=== PATIENT | male | born 1980 | race Caucasian/White ===

== ENCOUNTER 2020-03-29 12:59 | Outpatient (REF) | payer OTHER, SELFPAY ==
--- NOTE | 2020-03-29 13:02 | US_ITS ---
EXAMINATION: US SCROTUM CLINICAL INFORMATION: Lump on the testicle. COMPARISON: Ultrasound scrotum 04/25/2016 TECHNIQUE: A sonogram of the scrotum was performed assessing moctezuma-scale appearance and color Doppler flow. Spectral Doppler analysis of the arterial and venous flow were performed in the testes bilaterally. FINDINGS: RIGHT: Right testicle measures 3.9 x 1.9 x 2.8 cm, volume 10.8 mL. No focal testicular parenchymal lesions are visualized. Spectral Doppler analysis of the arterial and venous flow is normal in the right testis. Right epididymal head is normal in size. Small physiological fluid seen in the right testes. No right hydrocele or varicocele is seen. Right epididymal Doppler flow is normal. LEFT: Left testicle measures 4.1 x 1.9 x 2.8 cm, volume 11.4 mL. No focal testicular parenchymal lesions are visualized. Spectral Doppler analysis of the arterial and venous flow is normal in the left testis. Left epididymal head is normal in size. There is a small hydrocele. No varicocele is seen. Left epididymal Doppler flow is normal. There is a left epididymal head cyst measuring 0.4 x 0.3 x 0.6 cm. There is a complex area seen superior to left epididymal head in the spermatic cord. It appears similar to previous study. US/US scrotum IMPRESSION: Small left epididymal head cyst with hydrocele. Small echogenic area superior to left epididymal head in the spermatic cord, similar to previous study. It does not change in size with Valsalva maneuver. Question small hernia. Unremarkable testes.
[2020-03-29 15:16] LABS: MANUAL DIFF FLAG NO
[2020-03-29 15:21] LABS: Basophils Percent Auto 0.3 % (0-2); Eosinophils Absolute Auto 0.4 X10*3/uL (0.0-0.4); Eosinophils Percent Auto 5.3 % (0-4); Imm Gran Abs Auto 0.01 X10*3/uL (0.00-0.03); Imm Gran Pct Auto 0.2 % (0.0-0.4); Lymphocytes Absolute Auto 1.4 X10*3/uL (1.2-4.9); Lymphocytes Percent Auto 21.5 % (20-40); Mean Corpuscular Hemoglobin 30.6 pg (27.0-33.0); Mean Corpuscular Volume 89.9 fL (80-98); Mean Platelet Volume 9.7 fL (9.4-12.4); Monocytes Absolute Auto 0.6 X10*3/uL (0.1-1.2); Monocytes Percent Auto 8.8 % (2-11); Neutrophils Absolute Auto 4.2 X10*3/uL (2.0-8.3); Neutrophils Percent Auto 63.9 % (45-73); Platelet Count 262 X10*3/uL (160-400); Red Blood Count 5.23 X10*6/uL (4.60-5.80); Red Cell Distribution Width 12.1 % (11.0-16.0); White Blood Count 6.6 X10*3/uL (4.8-10.8)
[2020-03-29 16:27] LABS: Alanine Aminotransferase 41 U/L (0-40); Albumin Level 4.1 g/dL (3.5-5.0); Alkaline Phosphatase 89 U/L (39-117); Anion Gap 11 (12-20); Aspartate Amino Transferase 27 U/L (5-37); Bilirubin Total 0.6 mg/dL (0.0-1.0); Blood Urea Nitrogen 12 mg/dL (9-16); Calcium 9.2 mg/dL (8.4-10.2); Carbon Dioxide 29 mmol/L (22-29); Chloride 104 mmol/L (96-108); Cholesterol 148 mg/dL; Estimated Glomerular Filt Rate > 60; Glucose Fasting 95 mg/dL (60-99); HDL Cholesterol 27 mg/dL; LDL Cholesterol Calculated 105 mg/dl; Potassium 4.4 mmol/l (3.3-5.1); Sodium 140 mmol/L (135-145); Total Protein 7.4 g/dL (6.5-8.0); Triglycerides 84 mg/dL
== END 2020-03-29 13:00 | disposition home or self-care (01) ==
LOC: HO.US 12:59
PROVIDERS: PCP Internal Medicine; Visit Provider Internal Medicine
DX: Z00.00 Encounter for general adult medical examination without abnormal findings (principal); E11.9 Type 2 diabetes mellitus without complications; N50.89 Other specified disorders of the male genital organs
CPT/HCPCS: 36415; 76870; 80053; 80061; 85025

== ENCOUNTER 2020-04-29 12:34 | Outpatient (REF) | payer OTHER, SELFPAY | END 2020-04-29 12:35 | disposition home or self-care (01) | LOC: HO.LAB 12:34 | PROVIDERS: Visit Provider Internal Medicine | DX: Z20.822 Contact with and (suspected) exposure to COVID-19 (principal) | CPT/HCPCS: 36415; C9803; U0003; U0005 ==

== ENCOUNTER 2020-12-15 05:30 | Emergency (ER) | payer OTHER, SELFPAY ==
[2020-12-15 05:37] VITALS: BP 126/88; PULSE 83; RESP 16; TEMP 36.9; O2SAT 96; BMI 30.5
--- NOTE | 2020-12-15 06:12 | PC.NURSE ---
at bedside for primary eval.
--- NOTE | 2020-12-15 06:19 | ED.MALEGU ---
HPI - Male Genitourinary General Chief complaint: Urogenital-Male Stated complaint: blood coming from testicle Time Seen by Provider: 12/15/20 06:11 Source: patient Mode of arrival: ambulatory Limitations: no limitations History of Present Illness HPI Narrative: 40-year-old male who presents emergency department for evaluation of bleeding from his left testicle. The patient states that he has a history of ?jock itch ?and uses a clotrimazole/betamethasone 0.5% topical cream. He states that the redness in both testicles came back yesterday and he started using the cream. States this morning at 3:00 a.m. he was taking a shower noted blood on his left leg that was coming was testicle. He states that he bled a lot but eventually the bleeding stopped. He states this is the 1st time that he has noticed blood coming his testicle. Did not notice any laceration and he does not know exactly where the bleeding was coming from. He denied frequency, urgency, dysuria, testicular or scrotal pain. He denied fever, chills, easy bruisability, nose bleeds, dental bleeding, weight gain or weight loss. Related Data Home Medications Medication Instructions Recorded Confirmed acetaminophen 500 mg tablet 500 mg PO Q6H PRN 03/05/20 07/29/20 (Tylenol Extra Strength) Previous Rx's Medication Instructions Recorded clotrimazole-betamethasone 1 1 appl TOPICAL BID 14 Days #45 g 07/05/20 %-0.05 % topical cream tizanidine 4 mg capsule 4 mg PO Q8H PRN #60 cap 07/29/20 paroxetine HCl 20 mg tablet (Paxil) 20 mg PO DAILY #30 tab 08/06/20 Allergies Allergy/AdvReac Type Severity Reaction Status Date / Time No Known Allergies Allergy Verified 12/15/20 05:37 Review of Systems Review of Systems: Yes all other systems are reviewed and are negative [facility] Past Medical History [facility] Narrative: Past medical history: Scrotal fungal infection (jock itch). Surgical history: None. Social history: The patient denies tobacco, alcohol and drug use. Surgical History No history of previous surgery Family History Family History Mother No problems noted. Father No problems noted. Social History Social History Alcohol intake: never Advance Directives: No Physical Exam Vital Signs: Vital Signs: Last Vital Signs Temp 98.5 F 12/15/20 05:37 Pulse 83 12/15/20 05:37 Resp 16 12/15/20 05:37 BP 126/88 12/15/20 05:37 Pulse Ox 96 12/15/20 05:37 Body Mass Index 30.5 Const: General: cooperative and no acute distress Orientation/consciousness: oriented to person and oriented to place Limitations: no limitations HENMT: Head: Yes normal to inspection, Yes normocephalic and Yes atraumatic Ears: external ears normal General nose exam: Normal external nose present Face and sinus: Yes normal facial exam Mouth: Normal oral and palatal mucosa present Throat: Yes posterior oropharynx normal Eyes: General: appearance normal, both eyes and all related structures Pupils: Equal, round and reactive pupils present Neck: Neck: Yes normal visual inspection, Yes no lymphadenopathy, Yes trachea midline and Yes supple Chest: Chest palpation & inspection: normal inspection of the chest and normal palpation of entire chest wall Resp: Effort & Inspection: normal respiratory effort and able to speak in complete sentences Auscultation: clear to auscultation bilaterally Cardio: Rate: regular rate Rhythm: regular rhythm Heart sounds: S1 normal heart sound present, S2 normal heart sound present and no murmurs GI: Inspection: Yes normal to inspection Palpation (GI): Soft to palpation, nontender and no guarding Auscultation: normal bowel sounds : General: Yes no CVA tenderness Penis: normal penis Meatus: meatus normal and no meatla discharge Scrotum: erythematous (Bright red erythema to both scrotal areas) and Varicocele present (Small, bilateral scrotal varices, none are actively bleeding at this time) Testes: Testes normal, testicular lie normal, epididymides normal, no epidiymal tenderness, no testicular swelling and no testicular tenderness Back/Spine/Pelvis: Back: no CVA tenderness Skin: General skin exam: no rashes or lesions noted Neuro: General: oriented to person and oriented to place Cranial nerves: Yes CN's II-XII intact bilaterally and Yes Equal, round and reactive pupils present Cognition (Neuro): normal cognition Motor exam (neuro): 5/5 motor strength present throughout Extrem: General: Yes normal to inspection Psych: Appearance: grossly normal Speech and movement: Normal speech and movement present Affect: normal affect Attitude: cooperative Thought process: Normal thought process present Thought content: Normal thought content present Course Course Course Narrative: 40-year-old male who presents emergency department for evaluation of bleeding from his left testicle. This is the patient's 1st presentation was scrotal bleeding. Patient has also noticed erythema to both scrotal areas fell last 2 days, he has had similar presentations in the past and uses a clotrimazole/betamethasone 0.5% cream which he started yesterday. Physical examination did reveal significant bilateral testicular erythema consistent with a fungal infection. Patient also has small scrotal varices, there is 1 varices that appears to be more ecchymotic than the others but there was no active bleeding at this time. I did discuss variceal bleeding with the patient, he was advised to apply pressure to any area that is bleeding for 15-20 minutes with a gauze pad and come to the emergency department if he could not stop the bleeding. He is advised to continue to use his fungal cream on his testicles to improved the fungal infection. Patient was discharged home Discharge Plan Discharge Clinical Impression: Tinea cruris, Scrotal varices Patient Disposition: Home, Self-Care Instructions: Jock Itch (ED) Additional Instructions: Your redness on your scrotum is consistent with jock itch (fungal infection of the scrotum ). Continue using the clotrimazole/betamethasone topical cream as prescribed by your doctor. You also have very small swollen veins on your testicles (varices). Wanted these veins most likely started to bleed and has now stopped. If the bleeding occurs again, apply pressure with a gauze pad for 20 minutes, this should stop the bleeding. If you continue to bleed then you should return to the emergency department and sometimes you need a stitch/suture over the bleeding vein in order to stop it. Follow-up with your doctor in 2 days. Please return to the emergency department if your symptoms get worse or if you develop any symptoms that are concerning to you. Prescriptions: No Action clotrimazole-betamethasone 1-0.05 % cream 1 appl topical BID 14 Days Qty: 45 RF: 8 paroxetine HCl [Paxil] 20 mg tablet 20 mg PO DAILY Qty: 30 RF: 6 tizanidine 4 mg capsule 4 mg PO Q8H PRN (Reason: muscle spasticity) Qty: 60 RF: 5 acetaminophen [Tylenol Extra Strength] 500 mg tablet 500 mg PO Q6H PRNRF: 0
== END 2020-12-15 06:39 | disposition home or self-care (01) ==
PROVIDERS: Emergency Provider Emergency Medicine Emergency Medical Services; PCP Internal Medicine
DX: B35.6 Tinea cruris (principal); I86.1 Scrotal varices; Z79.899 Other long term (current) drug therapy
CPT/HCPCS: 99283

== ENCOUNTER 2022-01-30 14:01 | Outpatient (REF) | payer OTHER, SELFPAY ==
[2022-01-30 14:17] LABS: MANUAL DIFF FLAG NO
[2022-01-30 14:27] LABS: Basophils Percent Auto 0.3 % (0-2); Eosinophils Absolute Auto 0.4 X10*3/uL (0.0-0.4); Eosinophils Percent Auto 5.5 % (0-4); Hematocrit 48.1 % (42.0-52.0); Hemoglobin 16.2 g/dl (14.0-18.0); Imm Gran Abs Auto 0.02 X10*3/uL (0.00-0.03); Imm Gran Pct Auto 0.3 % (0.0-0.4); Lymphocytes Absolute Auto 1.8 X10*3/uL (1.2-4.9); Lymphocytes Percent Auto 26.7 % (20-40); Mean Corpuscular HGB Conc 33.7 g/dl (31.0-36.0); Mean Corpuscular Hemoglobin 29.6 pg (27.0-33.0); Mean Corpuscular Volume 87.8 fL (80.0-98.0); Mean Platelet Volume 9.3 fL (9.4-12.4); Monocytes Absolute Auto 0.6 X10*3/uL (0.1-1.2); Monocytes Percent Auto 9.6 % (2-11); Neutrophils Absolute Auto 3.8 x10*3/uL (2.0-8.3); Neutrophils Percent Auto 57.6 % (45-73); Platelet Count 246 X10*3/uL (160-400); Red Blood Count 5.48 X10*6/uL (4.60-5.80); Red Cell Distribution Width 12.3 % (11.0-16.0); White Blood Count 6.6 X10*3/uL (4.8-10.8)
[2022-01-30 14:57] LABS: Alanine Aminotransferase 39 U/L (0-40); Alkaline Phosphatase 92 U/L (39-117); Anion Gap 12 (12-20); Aspartate Amino Transferase 26 U/L (5-37); Bilirubin Total 0.8 mg/dL (0.0-1.0); Blood Urea Nitrogen 10 mg/dL (9-16); Calcium 9.5 mg/dL (8.4-10.2); Carbon Dioxide 27 mmol/L (22-29); Chloride 104 mmol/L (96-108); Cholesterol 189 mg/dL; Estimated Glomerular Filt Rate > 60; Glucose Fasting 106 mg/dL (60-99); HDL Cholesterol 24 mg/dL; LDL Cholesterol Calculated 138 mg/dl; Potassium 4.4 mmol/L (3.3-5.1); Sodium 139 mmol/L (135-145); Total Protein 7.3 g/dL (6.5-8.0); Triglycerides 137 mg/dL
== END 2022-01-30 14:02 | disposition home or self-care (01) ==
LOC: HO.LAB 14:01
PROVIDERS: PCP Internal Medicine; Visit Provider Internal Medicine
DX: I10 Essential (primary) hypertension (principal); E78.5 Hyperlipidemia, unspecified; Z13.0 Encounter for screening for diseases of the blood and blood-forming organs and certain disorders involving the immune mechanism
CPT/HCPCS: 36415; 80053; 80061; 85025

== ENCOUNTER 2022-04-10 21:26 | Emergency (ER) | payer OTHER, SELFPAY ==
[2022-04-10 21:28] VITALS: BP 136/79; PULSE 85; RESP 16; TEMP 37.6; O2SAT 97; BMI 31.0
--- NOTE | 2022-04-10 21:32 | ECG_ITS ---
Test Reason : chest pain Blood Pressure : / mmHG Vent. Rate : 085 BPM Atrial Rate : 085 BPM P-R Int : 160 ms QRS Dur : 106 ms QT Int : 364 ms P-R-T Axes : 049 015 013 degrees QTc Int : 433 ms Normal sinus rhythm Normal ECG No significant changes when compared with the previous EKG of 04 nov 2019 Referred By: Generic ED Physician Electronically Signed By:BELEN CHAVIRA
[2022-04-10 21:50] LABS: Basophils Percent Auto 0.2 % (0-2); Eosinophils Absolute Auto 0.3 X10*3/uL (0.0-0.4); Eosinophils Percent Auto 3.4 % (0-4); Hematocrit 42.8 % (42.0-52.0); Hemoglobin 14.5 g/dl (14.0-18.0); Imm Gran Abs Auto 0.02 X10*3/uL (0.00-0.03); Imm Gran Pct Auto 0.2 % (0.0-0.4); MANUAL DIFF FLAG NO; Mean Corpuscular HGB Conc 33.9 g/dl (31.0-36.0); Mean Corpuscular Hemoglobin 29.4 pg (27.0-33.0); Mean Corpuscular Volume 86.6 fL (80.0-98.0); Mean Platelet Volume 9.2 fL (9.4-12.4); Monocytes Absolute Auto 0.7 X10*3/uL (0.1-1.2); Monocytes Percent Auto 7.6 % (2-11); Neutrophils Absolute Auto 6.1 x10*3/uL (2.0-8.3); Neutrophils Percent Auto 66.6 % (45-73); Platelet Count 271 X10*3/uL (160-400); Red Blood Count 4.94 X10*6/uL (4.60-5.80); White Blood Count 9.2 X10*3/uL (4.8-10.8)
--- NOTE | 2022-04-10 21:50 | ED.CHESTPAIN ---
HPI - Chest Pain General Chief Complaint: Chest Pain Stated Complaint: discomfort in chest and left arm Time Seen by Provider: 04/10/22 21:50 Source: patient Mode of arrival: ambulatory Limitations: no limitations History of Present Illness HPI narrative: Patient with no known coronary artery disease risk factors nonsmoker no substance abuse complaining of right-sided parasternal chest pain for last 2 days which increases on bending forward and certain movements no shortness of breath no diaphoresis no cough no nausea/vomiting Related Data Home Medications Medication Instructions Recorded Confirmed acetaminophen 500 mg tablet 500 mg PO Q6H PRN 03/05/20 03/28/22 (Tylenol Extra Strength) Previous Rx's Medication Instructions Recorded tizanidine 4 mg capsule 4 mg PO Q8H PRN muscle spasticity 10/28/21 #60 caps paroxetine HCl 20 mg tablet (Paxil) 20 mg PO DAILY #30 tabs 03/03/22 clotrimazole-betamethasone 1 1 appl topical BID 2 weeks #45 03/28/22 %-0.05 % topical cream grams trazodone 100 mg tablet 100 mg PO BEDTIME PRN sleep #60 03/28/22 tabs ibuprofen 600 mg tablet 600 mg PO Q6H PRN fever or pain 04/10/22 #30 tabs Allergies Allergy/AdvReac Type Severity Reaction Status Date / Time No Known Allergies Allergy Verified 04/10/22 21:31 Review of Systems Review of Systems: Yes all other systems are reviewed and are negative [facility] Past Medical History Medical History Obesity Surgical History No history of previous surgery Family History Family History Mother No problems noted. Father No problems noted. Other Mental health disorder Social History Social History Housing: Apartment Alcohol intake: never Patient Tobacco Use Status: Never used Tobacco Smoked in Last 30 Days: No e-Cigarette/Vaping Use: Never Used Second Hand Smoke Exposure: No Use of substances other than those prescribed or required for medical reasons: No Advance Directives: No Advance Directives Information Provided: No service: No Current occupational status: employed Cognitive needs: No Hearing needs: No Vision needs: No Physical Exam Vital Signs: Vital Signs: Last Vital Signs Temp 98.1 F 04/10/22 22:01 Pulse 75 04/10/22 22:01 Resp 16 04/10/22 22:01 BP 113/72 04/10/22 22:01 Pulse Ox 97 04/10/22 22:01 O2 Del Method 04/10/22 22:01 BMI result Body Mass Index 31.0 Appearance: Alert. Oriented X3. No acute distress. Eyes: No pallor or icterus ENT: Pharynx normal. Oral Mucosa moist Neck: Normal inspection. Neck supple. CVS: Normal heart rate and rhythm. Pulses normal. No rub or murmur Respiratory: No respiratory distress. Equal air entry bilateral, no wheezing/rales/rhonchi right chest wall tenderness in the 3rd and 4th intercostal space Abdomen: Soft and nontender. Bowel sounds are present, no mass palpable, no CVA tenderness Skin: Skin warm and dry. Normal skin color. Normal skin turgor. Extremities: No lower extremity edema. No calf tenderness Neuro: Oriented X 3. No motor deficit. Medications Administered Discontinued Medications Generic Name Dose Route Start Last Admin Trade Name Freq PRN Reason Stop Dose Admin Ibuprofen 600 mg 04/10/22 22:02 04/10/22 22:10 Ibuprofen 600 Mg Tablet PO 04/10/22 22:03 Not Given ONCE ONE Medical Decision Making Medical Decision Making [facility] Narrative: Patient with atypical chest pain likely costochondritis on the right side heart score of 0 EKG normal high sensitive troponin negative discharge patient home on ibuprofen Lab Data [facility] Lab Attestation statement: I reviewed the patient's lab results. 04/10/22 21:44 04/10/22 21:44 Labs: Lab Results 04/10/22 04/10/22 04/10/22 Range/Units 21:44 21:44 21:44 WBC 9.2 (4.8-10.8) X10*3/uL RBC 4.94 (4.60-5.80) X10*6/uL Hgb 14.5 (14.0-18.0) g/dl Hct 42.8 (42.0-52.0) % MCV 86.6 (80.0-98.0) fL MCH 29.4 (27.0-33.0) pg MCHC 33.9 (31.0-36.0) g/dl RDW 12.0 (11.0-16.0) % Plt Count 271 (160-400) X10*3/uL MPV 9.2 L (9.4-12.4) fL Immature Gran % (Auto) 0.2 (0.0-0.4) % Neut % (Auto) 66.6 (45-73) % Lymph % (Auto) 22.0 (20-40) % [place] % (Auto) 7.6 (2-11) % Eos % (Auto) 3.4 (0-4) % Baso % (Auto) 0.2 (0-2) % Lymph # (Auto) 2.0 (1.2-4.9) X10*3/uL [place] # (Auto) 0.7 (0.1-1.2) X10*3/uL Eos # (Auto) 0.3 (0.0-0.4) X10*3/uL Baso # (Auto) 0.0 (0.0-0.2) X10*3/uL Abs Immat Gran (auto) 0.02 (0.00-0.03) X10*3/uL Absolute Neuts (auto) 6.1 (2.0-8.3) x10*3/uL Absolute Nucleated RBC 0.000 (0.0-0.012) X10*3/uL Nucleated RBC % (auto) 0.0 (0.0-0.2) /100WBC Sodium 139 (135-145) mmol/L Potassium 3.9 (3.3-5.1) mmol/L Chloride 102 (96-108) mmol/L Carbon Dioxide 26 (22-29) mmol/L Anion Gap 15 (12-20) BUN 17 H (9-16) mg/dL Creatinine 0.85 (0.5-1.4) mg/dL Estim Creat Clear Calc 130.2 Estimated GFR > 60 Random Glucose 111 (60-115) mg/dL Calcium 9.4 (8.4-10.2) mg/dL Troponin I High Sens < 3.5 (<3.5-35.0) ng/L Independent Interpretation I performed an independent interpretation of an: EKG Interpretation: Normal sinus rhythm heart rate 85 beats per minute normal interval normal axis no acute ST-T no acute ischemia impression normal EKG Scores Heart Score History: -0- slightly suspicious ECG: -0- normal Age: -0- < or = 45 Risk factory: -0- no risk factors known Troponin: -0- < or = normal limit Score: 0 Risk: 1.7% Discharge Plan Discharge Clinical Impression: Costalchondritis Patient Disposition: Home, Self-Care Instructions: Costochondritis (ED) Additional Instructions: your chest pain is not from the heart is likely musculoskeletal take pain medication as prescribed and follow with PCP if any concerns Prescriptions: New ibuprofen 600 mg tablet 600 mg PO Q6H PRN (Reason: fever or pain) Qty: 30 0RF No Action tizanidine 4 mg capsule 4 mg PO Q8H PRN (Reason: muscle spasticity) Qty: 60 5RF paroxetine HCl [Paxil] 20 mg tablet 20 mg PO DAILY Qty: 30 7RF acetaminophen [Tylenol Extra Strength] 500 mg tablet 500 mg PO Q6H PRN clotrimazole-betamethasone 1-0.05 % cream 1 appl topical BID 14 Days Qty: 45 3RF trazodone 100 mg tablet 100 mg PO BEDTIME PRN (Reason: sleep) Qty: 60 5RF Interventions: ED Discharge Assessment Last Done: 04/10/22 22:47 Discharge Date/Time: 04/10/22 22:48
[2022-04-10 22:01] VITALS: BP 113/72; PULSE 75; RESP 16; TEMP 36.7; O2SAT 97
[2022-04-10 22:04] LABS: Anion Gap 15 (12-20); Blood Urea Nitrogen 17 mg/dL (9-16); Calcium 9.4 mg/dL (8.4-10.2); Carbon Dioxide 26 mmol/L (22-29); Chloride 102 mmol/L (96-108); Creatinine Clr Calc Pharmacy 130.2; Estimated Glomerular Filt Rate > 60; Glucose Random 111 mg/dL (60-115); Potassium 3.9 mmol/L (3.3-5.1); Sodium 139 mmol/L (135-145)
[2022-04-10 22:12] LABS: Troponin-I High Sensitivity < 3.5 ng/L (<3.5-35.0)
--- NOTE | 2022-04-10 22:29 | PC.NURSE ---
this rn attempted to medicated pt according to may. pt reported 0/10 pain at this time and refused ibuprofen 600mg. this rn documented accordingly in mar
--- NOTE | 2022-04-10 22:46 | PC.NURSE ---
pt ambulatory at discharge. skin pwd. pt reports 0/10 pain at this time. pt provided with discharge packet. pt verbalized understanding of discharge plan.
== END 2022-04-10 22:48 | disposition home or self-care (01) ==
PROVIDERS: Emergency Provider Internal Medicine; PCP Internal Medicine
DX: M94.0 Chondrocostal junction syndrome [Tietze] (principal); Z79.899 Other long term (current) drug therapy
CPT/HCPCS: 36415; 80048; 84484; 85025; 93005; 99284; 99285

== ENCOUNTER 2022-11-09 09:18 | Outpatient (AMB) | payer OTHER, SELFPAY ==
--- NOTE | 2022-11-09 09:19 | A.OFFPC_ITS ---
Vital Signs 11/09/22 09:20 Height 5 ft 9 in Weight 206 lb BMI 30.4 BP 114/76 Blood Pressure Location Lt brachial Position Sitting Pulse 73 Pulse Source Pulse Oximeter Pulse Oximetry (%) 97 Oxygen Delivery Method Room Air Intake Visit Reasons: Sleep issues Allergies No Known Allergies Allergy (Verified 11/09/22 09:20) Tobacco use date assessed: 04/21/22 Dental Screening Dental Screen Date: 11/09/22 Did you have a dental visit in the last 12 months?: No Did you have a dental problem in the last 6 months where you did not have access to dental care?: No Was dental information given to patient?: No HPI Sleep issues HPI Details insomnia; nothing works [facility] Medical History Obesity Surgical History No history of previous surgery Family History Mother No problems noted. Father No problems noted. Other Mental health disorder Social History Housing: Apartment Alcohol intake: never Patient Tobacco Use Status: Never used Tobacco e-Cigarette/Vaping Use: Never Used Second Hand Smoke Exposure: No service: No Current occupational status: employed Cognitive needs: No Hearing needs: No Vision needs: No Questionnaire PHQ-9 Over the last 2 weeks, how often have you been bothered by any of the following problems? 1. Little interest or pleasure in doing things: several days 2. Feeling down, depressed, or hopeless: more than half the days 3. Trouble falling or staying asleep, or sleeping too much: nearly every day 4. Feeling tired or having little energy: nearly every day 5. Poor appetite or overeating: more than half the days 6. Feeling bad about yourself - or that you are a failure or have let yourself or your family down: more than half the days 7. Trouble concentrating on things, such as reading the newspaper or watching television: more than half the days 8. Moving or speaking so slowly that other people could have noticed. Or the opposite - being so fidgety or restless that you have been moving around a lot more than usual: not at all 9. Thoughts that you would be better off or of hurting yourself in some way: not at all Total score: 15 Depression Screening Interpretation: Positive 95002 - PHQ-9 Billing: Yes Source: Developed by Drs. Reji Camarena, Lizeth Horton, Star Teresa and colleagues, with an educational reymundo from [employer]. Thrive Questionnaire Date Thrive assessed: 04/21/22 Currently or been in a relationship where the following occur: no concerns reported AUDIT C Alcohol Use Questionnaire (AUDIT-C) Score Reviewed/Action Taken: Yes BOLIVAR-7 AMB Questionnaire BOLIVAR-7 Date BOLIVAR - 7 assessed: 04/21/22 Source: Developed by Drs. Reji Camarena, Lizeth Horton, Star stiles nd colleagues, with an educational reymundo from [employer]. Review of Systems Const Denies chills, Denies headache(s) and Denies weight loss ENT Denies headache(s) Card Denies chest pain, Denies syncope, Denies irregular heart rhythm and Denies dyspnea Resp Denies chest congestion, Denies cough and Denies dyspnea GI Denies abdominal pain, Denies change in stool character, Denies nausea and Denies vomiting Musc Denies deformity and Denies joint swelling Neuro Denies syncope and Denies headache(s) Physical exam (Primary Care) Vital Signs: Last Vital Signs Pulse 73 11/09/22 09:20 BP 114/76 11/09/22 09:20 Pulse Ox 97 11/09/22 09:20 Oxygen Delivery Method Room Air 11/09/22 09:20 BMI result Body Mass Index 30.4 obesity BMI Assessment/Plan discussion: High BMI High, discussed plan: lifestyle, weight reduction, dietary and physical activity Tobacco/Smoking Status: Tobacco use Status Tobacco use date assessed 04/21/22 11/09/22 09:24 Patient Tobacco Use Status Never used Tobacco 11/09/22 09:24 e-Cigarette/Vaping Use Never Used 11/09/22 09:24 PHQ-9: PHQ-9 Score PHQ-9: Total score 15 11/09/22 09:24 Depression Screening Interpretation: Positive Thrive Assessment: Date of Thrive Assessment Date Thrive assessed 04/21/22 11/09/22 09:24 Currently or been in a relationship where the following occur: no concerns reported Const General: comfortable, no acute distress and alert Neck Neck: Yes no lymphadenopathy Thyroid: Thyroid normal Resp Effort & Inspection: normal respiratory effort Auscultation: clear to auscultation bilaterally Percussion: percussion normal Cardio Jugular venous distension: no JVD Palpation: normal PMI Rate: regular rate Rhythm: regular rhythm Heart sounds: S1 normal heart sound present and S2 normal heart sound present GI Inspection: Yes normal to inspection Palpation (GI): No hepatosplenomegaly present Skin Other: insignificant ecchymosis right flank Extrem General: Yes no clubbing, cyanosis or edema Assessment and Plan Assessment & Plan (1) Insomnia: Code(s): G47.00 - Insomnia, unspecified Plan: new rx Medications: New eszopiclone (Lunesta) 2 mg PO BEDTIME 30 tabs 2RF Coding Level of Care Code Est Pt Level 3 (33179) Diagnoses Insomnia G47.00
[2022-11-09 09:20] VITALS: BP 114/76; PULSE 73; O2SAT 97; BMI 30.4
== END 2022-11-09 09:45 | disposition home or self-care (01) ==
PROVIDERS: PCP Internal Medicine; Visit Provider Internal Medicine
DX: G47.00 Insomnia, unspecified (principal)
CPT/HCPCS: 99213

== ENCOUNTER 2023-03-23 11:24 | Outpatient (AMB) | payer OTHER, SELFPAY ==
--- NOTE | 2023-03-23 11:33 | MHC.PC.OV ---
Vital Signs 03/23/23 11:35 Height 5 ft 9 in Weight 220 lb 8 oz BMI 32.6 BP 116/80 Blood Pressure Location Lt brachial Position Sitting Pulse 68 Pulse Source Pulse Oximeter Pulse Oximetry (%) 98 Oxygen Delivery Method Room Air Intake Visit Reasons: follow up Intake Note: Patient is here to follow up on [symptoms]. Solutions Executive Security Required: No Application Support Analyst: Not Required per policy Accompanied by: Self / Same As Patient Allergies No Known Allergies Allergy (Verified 03/23/23 11:35) Tobacco use date assessed: 03/23/23 Dental Screening Dental Screen Date: 03/23/23 Did you have a dental visit in the last 12 months?: No Did you have a dental problem in the last 6 months where you did not have access to dental care?: No Was dental information given to patient?: No HPI follow up HPI Details cyst right thigh for a week [facility] Medical History Obesity Surgical History No history of previous surgery Family History Mother No problems noted. Father No problems noted. Other Mental health disorder Social History Housing: Apartment Alcohol intake: never Patient Tobacco Use Status: Never used Tobacco e-Cigarette/Vaping Use: Never Used Second Hand Smoke Exposure: No service: No Current occupational status: employed Cognitive needs: No Hearing needs: No Vision needs: No Questionnaire PHQ-9 Over the last 2 weeks, how often have you been bothered by any of the following problems? 1. Little interest or pleasure in doing things: several days 2. Feeling down, depressed, or hopeless: several days 3. Trouble falling or staying asleep, or sleeping too much: nearly every day 4. Feeling tired or having little energy: nearly every day 5. Poor appetite or overeating: nearly every day 6. Feeling bad about yourself - or that you are a failure or have let yourself or your family down: more than half the days 7. Trouble concentrating on things, such as reading the newspaper or watching television: more than half the days 8. Moving or speaking so slowly that other people could have noticed. Or the opposite - being so fidgety or restless that you have been moving around a lot more than usual: not at all 9. Thoughts that you would be better off or of hurting yourself in some way: not at all Total score: 15 Depression Screening Interpretation: Negative Depression Screening Done: Yes [id number] - PHQ-9 Billing: Yes (existing condition) Source: Developed by Drs. Reji Camarena, Lizeth Horton, Star Teresa and colleagues, with an educational reymundo from [employer]. Thrive Questionnaire Date Thrive assessed: 03/23/23 I am a: Patient What is your living situation today?: I have a steady place to live Within the past 12 months, did the food you bought not last and you didn't have the money to get more?: Never true Within the past 12 months, did you worry whether your food would run out before you got money to buy more?: Never true Do you have trouble paying for medicines?: No Do you have trouble getting transportation to medical appointments?: No Do you have trouble paying your heating and electricity bill?: No Do you have trouble taking care of your child, family member or friend?: No Do you have trouble with day-to-day activities such as bathing, preparing meals, shopping, managing finances, etc.?: No Are you currently unemployed and looking for a job?: No Are you interested in more education?: No Currently or been in a relationship where the following occur: no concerns reported AUDIT C Alcohol Use Questionnaire (AUDIT-C) 1. How often do you have a drink containing alcohol?: Never Total Score: 0 Score Reviewed/Action Taken: Yes BOLIVAR-7 AMB Questionnaire BOLIVAR-7 Date BOLIVAR - 7 assessed: 03/23/23 Feeling nervous, anxious, or on edge: 1 = Several days Not being able to stop or control worryin = Not at all Worrying too much about different things: 2 = More than half the days Trouble relaxin = More than half the days Being so restless that it is hard to sit still: 0 = Not at all Becoming easily annoyed or irritable: 2 = More than half the days Feeling afraid as if something awful might happen: 2 = More than half the days Total BOLIVAR-7 score (0-4 normal; 5-9 mild; 10-14 moderate; 15-21 severe): 9 Source: Developed by Drs. Reji Camarena, Lizeth Horton, Star Teresa and colleagues, with an educational reymundo from [employer]. Review of Systems Const Denies chills, Denies headache(s) and Denies weight loss ENT Denies headache(s) Card Denies chest pain, Denies syncope, Denies irregular heart rhythm and Denies dyspnea Resp Denies chest congestion, Denies cough and Denies dyspnea GI Denies abdominal pain, Denies change in stool character, Denies nausea and Denies vomiting Musc Denies deformity and Denies joint swelling Neuro Denies syncope and Denies headache(s) Physical exam (Primary Care) Vital Signs: Last Vital Signs Pulse 68 03/23/23 11:35 BP 116/80 03/23/23 11:35 Pulse Ox 98 03/23/23 11:35 Oxygen Delivery Method Room Air 03/23/23 11:35 BMI result Body Mass Index 32.6 Tobacco/Smoking Status: Tobacco use Status Tobacco use date assessed 03/23/23 03/23/23 11:36 Patient Tobacco Use Status Never used Tobacco 03/23/23 11:36 e-Cigarette/Vaping Use Never Used 03/23/23 11:36 PHQ-9: PHQ-9 Score PHQ-9: Total score 15 03/23/23 11:41 Depression Screening Interpretation: Negative Thrive Assessment: Date of Thrive Assessment Date Thrive assessed 03/23/23 03/23/23 11:36 Currently or been in a relationship where the following occur: no concerns reported Const General: cooperative, comfortable, no acute distress and alert Neck Neck: Yes no lymphadenopathy Thyroid: Thyroid normal Resp Effort & Inspection: normal respiratory effort Auscultation: clear to auscultation bilaterally Percussion: percussion normal Cardio Jugular venous distension: no JVD Palpation: normal PMI Rate: regular rate Rhythm: regular rhythm Heart sounds: S1 normal heart sound present and S2 normal heart sound present GI Inspection: Yes normal to inspection Palpation (GI): No hepatosplenomegaly present Skin Other: 1 cm cyst right thigh Extrem General: Yes no clubbing, cyanosis or edema Assessment and Plan Assessment & Plan (1) Skin cyst: Code(s): L72.9 - Follicular cyst of the skin and subcutaneous tissue, unspecified Plan: rx Medications: New cephalexin 250 mg PO Q6H 20 caps 0RF Coding Level of Care Code Est Pt Level 3 (62279) Diagnoses Skin cyst L72.9
[2023-03-23 11:35] VITALS: BP 116/80; PULSE 68; O2SAT 98; BMI 32.6
== END 2023-03-23 11:45 | disposition home or self-care (01) ==
PROVIDERS: PCP Internal Medicine; Visit Provider Internal Medicine
DX: L72.9 Follicular cyst of the skin and subcutaneous tissue, unspecified (principal)
CPT/HCPCS: 99213

== ENCOUNTER 2023-05-04 09:52 | Outpatient (AMB) | payer OTHER, SELFPAY ==
--- NOTE | 2023-05-04 09:54 | MHC.PC.OV ---
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 Accompanied by: Self / Same As Patient Allergies No Known Allergies Allergy (Verified 05/04/23 09:54) Medication List - Last Reconciled 05/04/23 by Black Tran MD acetaminophen (Tylenol Extra Strength) 500 mg PO Q6H PRN cephalexin 250 mg PO Q6H clotrimazole-betamethasone 1-0.05 % 1 appl topical BID 2 weeks eszopiclone (Lunesta) 2 mg PO BEDTIME ibuprofen 600 mg PO Q6H PRN paroxetine HCl (Paxil) 20 mg PO DAILY tizanidine 4 mg PO Q8H PRN trazodone 100 mg PO BEDTIME PRN zolpidem (Ambien) 5 mg PO BEDTIME PRN 30 days Tobacco use date assessed: 03/23/23 Dental Screening Dental Screen Date: 05/04/23 Did you have a dental visit in the last 12 months?: No Did you have a dental problem in the last 6 months where you did not have access to dental care?: Yes Was dental information given to patient?: Patient has dentist HPI PE HPI Details Depression on rx; doing well; compliant [facility] Medical History Obesity Surgical History No history of previous surgery Family History Mother No problems noted. Father No problems noted. Other Mental health disorder Social History Housing: Apartment Alcohol intake: never Patient Tobacco Use Status: Never used Tobacco e-Cigarette/Vaping Use: Never Used Second Hand Smoke Exposure: No service: No Current occupational status: employed Cognitive needs: No Hearing needs: No Vision needs: No Questionnaire Thrive Questionnaire Date Thrive assessed: 03/23/23 BOLIVAR-7 AMB Questionnaire BOLIVAR-7 Date BOLIVAR - 7 assessed: 03/23/23 Source: Developed by Drs. Reji Camarena, Lizeth Horton, Star Teresa and colleagues, with an educational reymundo from [employer]. Review of Systems Const Denies chills, Denies fatigue, Denies headache(s) and Denies weight loss Eyes Denies change in vision, Denies diplopia and Denies eye pain ENT Denies vertigo, Denies dizziness, Denies headache(s) and Denies nasal discharge Card Denies chest pain, Denies rapid heart rate and Denies dyspnea on exertion Resp Denies chest congestion, Denies cough, Denies pain with cough and Denies dyspnea on exertion GI Denies abdominal pain, Denies hematochezia and Denies change in bowel habits Musc Denies myalgias, Denies arthralgias and Denies joint swelling Skin/Breast Denies lesions and Denies unusual bruising Neuro Denies vertigo, Denies dizziness, Denies headache(s) and Denies focal weakness Endo Denies fatigue Physical exam (Primary Care) Vital Signs: Last Vital Signs Pulse 75 05/04/23 10:09 BP 118/76 05/04/23 10:09 Pulse Ox 98 05/04/23 10:09 Oxygen Delivery Method Room Air 05/04/23 10:09 BMI result Body Mass Index 32.3 Tobacco/Smoking Status: Tobacco use Status Tobacco use date assessed 03/23/23 05/04/23 09:55 Patient Tobacco Use Status Never used Tobacco 05/04/23 09:55 e-Cigarette/Vaping Use Never Used 05/04/23 09:55 Thrive Assessment: Date of Thrive Assessment Date Thrive assessed 03/23/23 05/04/23 09:55 Const General: cooperative, healthy appearing and no acute distress Orientation/consciousness: oriented to person, oriented to place and oriented to time HENWY Head: Yes normal to inspection, Yes normocephalic and Yes atraumatic Mouth: Normal oral and palatal mucosa present and tongue normal Throat: Yes posterior oropharynx normal and Yes uvula midline Eyes General: appearance normal, both eyes and all related structures Neck Neck: Yes normal visual inspection, Yes full ROM and Yes no lymphadenopathy Thyroid: Thyroid normal Carotids: normal carotid upstroke Chest Chest palpation & inspection: normal inspection of the chest Resp Effort & Inspection: normal respiratory effort and able to speak in complete sentences Auscultation: clear to auscultation bilaterally Cardio Jugular venous distension: no JVD Palpation: normal PMI Rate: regular rate Rhythm: regular rhythm Heart sounds: S1 normal heart sound present and S2 normal heart sound present GI Inspection: Yes normal to inspection Palpation (GI): Soft to palpation and No hepatosplenomegaly present Auscultation: normal bowel sounds General: Yes no CVA tenderness Back/Spine/Pelvis Back: no CVA tenderness Skin General skin exam: no rashes or lesions noted Neuro General: oriented to person, oriented to place and oriented to time Extrem General: Yes normal to inspection and Yes full ROM Assessment and Plan Assessment & Plan (1) Physical exam: Code(s): Z00.00 - Encounter for general adult medical examination without abnormal findings Plan: stable; do labs (2) Depression: Code(s): F32.A - Depression, unspecified Plan: stable; same rx Orders: Orders Complete Blood Count Auto Diff Today D64.9 - Anemia, unspecified Lipid Panel Today E78.5 - Hyperlipidemia, unspecified Comprehensive [place]. Panel Fast Today N28.9 - Disorder of kidney and ureter, unspecified Thyroid Stimulating Hormone Today E03.9 - Hypothyroidism, unspecified Coding Level of Care Code Est Pt Prev Care 40-64y(72621) Diagnoses Physical exam Z00.00 Depression F32.A
[2023-05-04 10:09] VITALS: BP 118/76; PULSE 75; O2SAT 98; BMI 32.3
== END 2023-05-04 10:36 | disposition home or self-care (01) ==
PROVIDERS: PCP Internal Medicine; Visit Provider Internal Medicine
DX: Z00.00 Encounter for general adult medical examination without abnormal findings (principal); F32.A Depression, unspecified
CPT/HCPCS: 99396

== ENCOUNTER 2023-06-01 11:10 | Outpatient (AMB) | payer OTHER, SELFPAY ==
--- NOTE | 2023-06-01 11:55 | MHC.PC.OV ---
Intake Visit Reasons: T dap Allergies No Known Allergies Allergy (Verified 05/04/23 09:54) Tobacco use date assessed: 03/23/23 [facility] Medical History Obesity Surgical History No history of previous surgery Family History Mother No problems noted. Father No problems noted. Other Mental health disorder Social History Housing: Apartment Alcohol intake: never Patient Tobacco Use Status: Never used Tobacco e-Cigarette/Vaping Use: Never Used Second Hand Smoke Exposure: No service: No Current occupational status: employed Cognitive needs: No Hearing needs: No Vision needs: No Questionnaire Thrive Questionnaire Date Thrive assessed: 03/23/23 BOLIVAR-7 AMB Questionnaire BOLIVAR-7 Date BOLIVAR - 7 assessed: 03/23/23 Source: Developed by Drs. Reji Camarena, Lizeth Horton, Star Teresa and colleagues, with an educational reymundo from [employer]. Physical exam (Primary Care) Tobacco/Smoking Status: Tobacco use Status Tobacco use date assessed 03/23/23 06/01/23 11:55 Patient Tobacco Use Status Never used Tobacco 06/01/23 11:55 e-Cigarette/Vaping Use Never Used 06/01/23 11:55 Thrive Assessment: Date of Thrive Assessment Date Thrive assessed 03/23/23 06/01/23 11:55 Assessment and Plan Assessment & Plan Orders: Orders TDaP Immunization Today Z23 - Encounter for immunization Medications: New Boostrix Tdap (diphth,pertus(acell),tetanus) 0.5 mL IM ONCE 0.5 mL 0RF NS Z23 - Encounter for immunization Coding Level of Care Code Procedure Only
--- NOTE | 2023-06-01 15:41 | AM.OFFVISNUR ---
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 Eligible 06/01/23 Private Coding Assessment & Plan Assessment & Plan Orders: Orders TDaP Immunization Today Z23 - Encounter for immunization
== END 2023-06-01 12:17 | disposition home or self-care (01) ==
PROVIDERS: PCP Internal Medicine; Visit Provider Internal Medicine
DX: Z23 Encounter for immunization (principal)
CPT/HCPCS: 90471; 90715

== ENCOUNTER 2024-06-27 09:54 | Outpatient (AMB) | payer OTHER, SELFPAY ==
--- NOTE | 2024-06-27 10:01 | A.OFFPC_ITS ---
Vital Signs 06/27/24 10:02 Height 5 ft 9 in Weight 219 lb 2 oz BMI 32.4 BP 110/70 Blood Pressure Location Lt brachial Position Sitting Pulse 87 Pulse Source Pulse Oximeter Temp 97.1 F Temp Source Temporal Artery Scan Pulse Oximetry (%) 97 Oxygen Delivery Method Room Air Intake Visit Reasons: annual exam/laurel Dr Tran Intake Note: Patient is here today for a physical and LAUREL from Dr Tran. 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 Required: No Medicaid Plan Compliance Director: Not Required per policy Accompanied by: Self / Same As Patient Allergies No Known Allergies Allergy (Verified 06/27/24 10:13) Medication List - Last Reconciled 06/27/24 by Teresa Vann PA-C acetaminophen (Tylenol Extra Strength) 500 mg PO Q6H PRN clotrimazole-betamethasone 1-0.05 % 1 appl topical BID 2 weeks Tobacco use date assessed: 06/27/24 Dental Screening Dental Screen Date: 06/27/24 Did you have a dental visit in the last 12 months?: No Did you have a dental problem in the last 6 months where you did not have access to dental care?: No Was dental information given to patient?: No HPI annual exam/laurel Dr Tran HPI Details 43 year old male with past medical histo ry of obesity, depression and insomnia last seen by Dr. Tran 04/2024 coming in for transfer care. Presenting with an annual wellness visit and complaints of insomnia and dermatomycosis. Reports a history of insomnia with worsening symptoms over the past year, describing issues with both falling and staying asleep, previously treated with trazodone and Ambien, but achieving limited success. Describes recurring episodes of dermatomycosis, specifically jock itch, managed with topical treatment but does have recurrence. History of depression but currently not on medication. Engages in psychotherapy as needed but has not attended sessions for the last eight months. [facility] Medical History Obesity Surgical History No history of previous surgery Family History Mother No problems noted. Father No problems noted. Other Mental health disorder Social History Housing: Apartment Alcohol intake: never Patient Tobacco Use Status: Never used Tobacco e-Cigarette/Vaping Use: Never Used Second Hand Smoke Exposure: No service: No Current occupational status: employed Cognitive needs: No Hearing needs: No Vision needs: No Questionnaire PHQ-9 Over the last 2 weeks, how often have you been bothered by any of the following problems? 1. Little interest or pleasure in doing things: several days 2. Feeling down, depressed, or hopeless: several days 3. Trouble falling or staying asleep, or sleeping too much: several days 4. Feeling tired or having little energy: several days 5. Poor appetite or overeating: several days 6. Feeling bad about yourself - or that you are a failure or have let yourself or your family down: several days 7. Trouble concentrating on things, such as reading the newspaper or watching television: several days 8. Moving or speaking so slowly that other people could have noticed. Or the opposite - being so fidgety or restless that you have been moving around a lot more than usual: several days 9. Thoughts that you would be better off or of hurting yourself in some way: several days Total score: 9 Depression Screening Interpretation: Positive Depression Screening Follow-up: Existing condition and Declines treatment Depression Screening Done: Yes 84850 - PHQ-9 Billing: Yes Source: Developed by Drs. Reji Camarena, Lizeth Horton, Star Teresa and colleagues, with an educational reymundo from [employer]. Thrive Questionnaire Date Thrive assessed: 06/27/24 I am a: Patient What is your living situation today?: I have a steady place to live Within the past 12 months, did the food you bought not last and you didn't have the money to get more?: Never true Within the past 12 months, did you worry whether your food would run out before you got money to buy more?: Never true Do you have trouble paying for medicines?: No Do you have trouble getting transportation to medical appointments?: No Do you have trouble paying your heating and electricity bill?: No Do you have trouble taking care of your child, family member or friend?: No Do you have trouble with day-to-day activities such as bathing, preparing meals, shopping, managing finances, etc.?: No Are you currently unemployed and looking for a job?: No Are you interested in more education?: No Please select the resources that you would like help with: None Currently or been in a relationship where the following occur: No concerns reported THRIVE Score: 0 AUDIT C Alcohol Use Questionnaire (AUDIT-C) 1. How often do you have a drink containing alcohol?: Never Total Score: 0 BOLIVAR-7 AMB Questionnaire BOLIVAR-7 Date BOLIVAR - 7 assessed: 06/27/24 Feeling nervous, anxious, or on edge: 1 = Several days Not being able to stop or control worryin = Several days Worrying too much about different things: 1 = Several days Trouble relaxin = Several days Being so restless that it is hard to sit still: 1 = Several days Becoming easily annoyed or irritable: 1 = Several days Feeling afraid as if something awful might happen: 1 = Several days Total BOLIVAR-7 score (0-4 normal; 5-9 mild; 10-14 moderate; 15-21 severe): 7 Source: Developed by Drs. Reji Camarena, Lizeth Horton, Star Teresa and colleagues, with an educational reymundo from [employer]. BOLIVAR-7 Assessment Billing BOLIVAR-7 Assessment Tool: BOLIVAR-7 Assessment 59675 Review of Systems Const Denies body aches, Denies fatigue, Denies fever(s), Denies frequent falls, Denies headache(s) and Denies weakness Eyes Reports no additional complaints and Denies change in vision ENT Denies dysphagia, Denies dizziness, Denies facial pain, Denies headache(s), Denies nasal congestion and Denies odynophagia Card Denies chest pain, Denies syncope, Denies irregular heart rhythm, Denies leg edema, Denies lightheadedness and Denies dyspnea Resp Denies cough and Denies dyspnea GI Denies constipation, Denies dysphagia, Denies dyspepsia, Denies diarrhea, Denies nausea, Denies odynophagia and Denies vomiting Denies dysuria, Denies urinary frequency, Denies urinary hesitancy and Denies urinary urgency Musc Denies back pain and Denies myalgias Skin/Breast Reports system reviewed and no additional complaints, except as documented Neuro Denies dizziness, Denies syncope, Denies frequent falls, Denies headache(s) and Denies weakness Psych Reports no additional complaints Endo Denies fatigue Physical exam (Primary Care) Vital Signs: Last Vital Signs Temp 97.1 F 06/27/24 10:02 Pulse 87 06/27/24 10:02 BP 110/70 06/27/24 10:02 Pulse Ox 97 06/27/24 10:02 Oxygen Delivery Method Room Air 06/27/24 10:02 BMI result Body Mass Index 32.4 Tobacco/Smoking Status: Tobacco use Status Tobacco use date assessed 06/27/24 06/27/24 10:07 Patient Tobacco Use Status Never used Tobacco 06/27/24 10:07 e-Cigarette/Vaping Use Never Used 06/27/24 10:07 PHQ-9: PHQ-9 Score PHQ-9: Total score 9 06/27/24 10:07 Depression Screening Interpretation: Positive Depression Screening Follow-up: Existing condition and Declines treatment Thrive Assessment: Date of Thrive Assessment Date Thrive assessed 06/27/24 06/27/24 10:07 Currently or been in a relationship where the following occur: No concerns reported Const General: cooperative, healthy appearing, comfortable and no acute distress Orientation/consciousness: patient oriented x3 HENMT Head: Yes normocephalic Ears: hearing grossly normal bilaterally, external ears normal, TM's normal bilaterally and EAC's normal General nose exam: Normal external nose present Face and sinus: Yes normal facial exam and Yes sinuses nontender Mouth: Normal oral and palatal mucosa present and tongue normal Throat: Yes posterior oropharynx normal Eyes General: appearance normal, both eyes and all related structures Conjunctivae: conjunctivae normal Pupils: Equal, round and reactive pupils present EOM: EOMs intact bilaterally and No Nystagmus present Neck Neck: Yes normal visual inspection, Yes full ROM and Yes no lymphadenopathy Chest Chest palpation & inspection: normal inspection of the chest Resp Effort & Inspection: normal respiratory effort Auscultation: clear to auscultation bilaterally, no crackles, no rales, no rhonchi, no wheezes and breath sounds present Cardio Rate: regular rate Rhythm: regular rhythm Peripheral pulses: radial pulses present and dorsalis pedis present GI Inspection: Yes normal to inspection and No Abdominal wall edema Palpation (GI): Soft to palpation, not firm and nontender Auscultation: normal bowel sounds Rectal Exam - Male: Yes deferred Other: Declined General: Yes no CVA tenderness Back/Spine/Pelvis Back: no CVA tenderness Skin Other: No evidence of onychomycosis of the toenails General skin exam: no rashes or lesions noted Neuro General: patient oriented x3 Cranial nerves: Yes Equal, round and reactive pupils present, Yes Midline tongue present, Yes Ability to bilaterally elevate shoulders present and No Nystagmus present Gait exam (Neuro): Normal gait present Extrem General: Yes normal to inspection, Yes full ROM, No no pedal edema and No edema Psych Speech and movement: Normal speech and movement present Affect: normal affect Insight: Good insight present (Psych) Judgement: Good judgement present (Psych) Coding Level of Care Code Est Pt Prev Care 40-64y(83478) Diagnoses Depression F32.A Physical exam Z00.00 Insomnia G47.00 Obesity E66.9 Back pain M54.9 Additional Codes PHQ-9 - 74912 - PHQ-9 Billing: Yes ([id number]) BOLIVAR-7 Assessment Billing - BOLIVAR-7 Assessment Tool: BOLIVAR-7 Assessment 60869 ([id number]) Assessment & Plan Assessment & Plan (1) Depression: Comment: declines medication - sees therapist PRN Code(s): F32.A - Depression, unspecified Category: Medical Plan: Patient does positive PHQ-9 today he states it is mostly related to his insomnia. He declines the need for medication at this time and we will continue to follow with his therapist as needed. (2) Physical exam: Code(s): Z00.00 - Encounter for general adult medical examination without abnormal findings Category: Medical Plan: Patient is up-to-date on all recommended routine screenings and vaccinations for his age. Blood work is not up-to-date in orders were placed today advised patient to have blood work done in the next 2 weeks so we can review at his next visit. Plan to follow up in 3 months to review blood work in discussed efficacy of insomnia treatment. Healthy diet and regular exercise is encouraged. (3) Insomnia: Code(s): G47.00 - Insomnia, unspecified Category: Medical Plan: Plan to start on hydroxyzine as needed for sleep patient has tried trazodone and Ambien in the past without good relief. Follow up in 3 months or sooner if new problems arise. (4) Obesity: Code(s): E66.9 - Obesity, unspecified Category: Medical Plan: Healthy diet and regular exercise is encouraged. (5) Back pain: Comment: 20 min reviewing chart evaluating patient and documenting Code(s): M54.9 - Dorsalgia, unspecified Category: Medical Plan: symptoms have resolved at this time, continue to monitor. Plan I advised treatment initiation with hydroxyzine 25 mg for insomnia, assessing the need for adjustment based on response. The patient's intermittent depression remains managed with as-needed therapy, not requiring current pharmacotherapy. Blood work is to be completed, monitoring cholesterol levels among others with follow-up scheduled to discuss results. The necessity of scaling up screenings as age-appropriate continues with future assessments of prostate and gastrointestinal health markers. This note was constructed using voice recognition software. While every effort has been made to ensure accuracy and asbestos hazard abatement worker, still areas may have been included sometimes these areas may affect the content or meeting of the given symptoms. Total time spent caring for the patient today was 30 minutes. This includes time spent before the visit reviewing the chart, time spent during the visit, and time spent after the visit and documentation. Patient was informed and verbally consented to the use of an ambient scribe for clinic note documentation during this visit. Orders: Orders Complete Blood Count Auto Diff Today Z00.00 - Encounter for general adult medical examination without abnormal findings Comprehensive Met. Panel Today Z00.00 - Encounter for general adult medical examination without abnormal findings Free T4 (Free Thyroxine) Today Z00.00 - Encounter for general adult medical examination without abnormal findings Lipid Panel Today Z13.220 - Encounter for screening for lipoid disorders Hemoglobin A1c Today Z13.1 - Encounter for screening for diabetes mellitus TSH reflex Free T4 Today Z00.00 - Encounter for general adult medical examination without abnormal findings Vitamin B12 and Folate Today Z00.00 - Encounter for general adult medical examination without abnormal findings Vitamin D 25-OH Total Today Z00.00 - Encounter for general adult medical examination without abnormal findings Medications: New hydroxyzine HCl 25 mg PO BEDTIME 30 tabs 0RF nystatin 1 appl topical BID 30 grams 0RF
[2024-06-27 10:02] VITALS: BP 110/70; PULSE 87; TEMP 36.2; O2SAT 97; BMI 32.4
== END 2024-06-27 10:28 | disposition home or self-care (01) ==
LOC: HO.HMCH 09:55
DX: Z00.00 Encounter for general adult medical examination without abnormal findings (principal); F32.A Depression, unspecified; Z68.32 Body mass index [BMI] 32.0-32.9, adult; E66.9 Obesity, unspecified; G47.00 Insomnia, unspecified; M54.9 Dorsalgia, unspecified

== ENCOUNTER → 2024-06-27 09:54 | Outpatient (BNVA) | payer OTHER, SELFPAY | DX: Z00.00 Encounter for general adult medical examination without abnormal findings (principal); F32.A Depression, unspecified; G47.00 Insomnia, unspecified; M54.9 Dorsalgia, unspecified; E66.9 Obesity, unspecified; Z68.32 Body mass index [BMI] 32.0-32.9, adult; Z71.3 Dietary counseling and surveillance | CPT/HCPCS: 96127; 99396 ==

== ENCOUNTER 2024-07-15 11:38 | Outpatient (REF) | payer OTHER, SELFPAY ==
[2024-07-15 12:03] LABS: MANUAL DIFF FLAG NO
[2024-07-15 12:35] LABS: Basophils Percent Auto 0.3 % (0-2); Eosinophils Absolute Auto 0.4 X10*3/uL (0.0-0.4); Eosinophils Percent Auto 5.4 % (0-4); Hematocrit 44.6 % (42.0-52.0); Imm Gran Abs Auto 0.01 X10*3/uL (0.00-0.03); Imm Gran Pct Auto 0.1 % (0.0-0.4); Lymphocytes Absolute Auto 2.3 X10*3/uL (1.2-4.9); Lymphocytes Percent Auto 31.3 % (20-40); Mean Corpuscular HGB Conc 33.6 g/dl (31.0-36.0); Mean Corpuscular Hemoglobin 29.4 pg (27.0-33.0); Mean Corpuscular Volume 87.5 fL (80.0-98.0); Mean Platelet Volume 9.6 fL (9.4-12.4); Monocytes Absolute Auto 0.7 X10*3/uL (0.1-1.2); Neutrophils Absolute Auto 3.9 x10*3/uL (2.0-8.3); Neutrophils Percent Auto 53.9 % (45-73); Platelet Count 253 X10*3/uL (160-400); Red Cell Distribution Width 12.6 % (11.0-16.0); White Blood Count 7.2 X10*3/uL (4.8-10.8)
[2024-07-15 12:44] LABS: Estimated Average Glucose 126 mg/dL; Hemoglobin A1C 164.5611 umol/L; Total Hemoglobin (HGBA1C) 3863.7865 umol/L
[2024-07-15 13:11] LABS: Alanine Aminotransferase 39 U/L (0-40); Alkaline Phosphatase 84 U/L (39-117); Anion Gap 9 (12-20); Aspartate Amino Transferase 27 U/L (5-37); Bilirubin Total 0.5 mg/dL (0.0-1.0); Blood Urea Nitrogen 13 mg/dL (9-16); Calcium 9.1 mg/dL (8.4-10.2); Carbon Dioxide 28 mmol/L (22-29); Chloride 106 mmol/L (96-108); Cholesterol 151 mg/dL (<200); Estimated Glomerular Filt Rate > 60; Glucose Random 121 mg/dL (60-115); HDL Cholesterol 24 mg/dL (>40); LDL Cholesterol Calculated 109 mg/dL (<100); Sodium 139 mmol/L (135-145); Total Protein 7.5 g/dL (6.5-8.0); Triglycerides 93 mg/dL (<150)
[2024-07-15 13:29] LABS: Free T4 (Free Thyroxine) 0.97 ng/dL (0.71-1.85); TSH reflex Free T4 1.12 uIU/mL (0.32-4.0); Vitamin D 25-OH Total 10.6 ng/mL (>30)
[2024-07-15 13:37] LABS: Folate 13.9 ng/mL (> or = 4.0); Vitamin B12 388 pg/mL (200-900)
== END 2024-07-15 11:39 | disposition home or self-care (01) ==
LOC: HO.LAB 11:38
DX: Z00.00 Encounter for general adult medical examination without abnormal findings (principal); Z13.220 Encounter for screening for lipoid disorders; Z13.1 Encounter for screening for diabetes mellitus
CPT/HCPCS: 36415; 80053; 80061; 82306; 82607; 82746; 83036; 84439; 84443; 85025

== ENCOUNTER 2024-10-01 08:45 | Outpatient (AMB) | payer OTHER, SELFPAY ==
--- NOTE | 2024-10-01 08:53 | A.OFFPC_ITS ---
Vital Signs 3 10/01/24 08:54 Height 5 ft 9 in Weight 218 lb 2 oz BMI 32.2 BP 118/64 Blood Pressure Location Lt brachial Position Sitting Pulse 69 Pulse Source Pulse Oximeter Pulse Oximetry (%) 98 Oxygen Delivery Method Room Air Intake Visit Reasons: f/u insomnia Call Or Contact Centre Operator Required: No Accompanied by: Self / Same As Patient Allergies No Known Allergies Allergy (Verified 10/01/24 09:02) Medication List - Last Reconciled 10/01/24 by Teresa Vann PA-C acetaminophen (Tylenol Extra Strength) 500 mg PO Q6H PRN cholecalciferol (vitamin D3) 25 mcg PO DAILY clotrimazole-betamethasone 1-0.05 % 1 appl topical BID 2 weeks hydroxyzine HCl 25 mg PO BEDTIME nystatin 1 appl topical BID Tobacco use date assessed: 06/27/24 Dental Screening Dental Screen Date: 10/01/24 HPI f/u insomnia 2 HPI0 Details 43 year old male with past medical histo ry of obesity, depression and insomnia last seen 06/2024 coming in for follow up. At his last visit he was started on Hydroxyzine as needed for sleep. Presenting with insomnia and a skin lesion on the right calf. The patient reports difficulty staying asleep, with previous trials of hydroxyzine, trazodone, and Ambien proving ineffective. The patient experiences grogginess with trazodone, impacting daily functioning. The patient noticed a red, itchy bump on the right calf approximately one and a half months ago. The lesion has smooth borders and no underlying movement. [facility] Medical History Obesity Surgical History No history of previous surgery Family History Mother No problems noted. Father No problems noted. Other Mental health disorder Social History Housing: Apartment Alcohol intake: never Patient Tobacco Use Status: Never used Tobacco e-Cigarette/Vaping Use: Never Used Second Hand Smoke Exposure: No service: No Current occupational status: employed Cognitive needs: No Hearing needs: No Vision needs: No Questionnaire PHQ-9 Over the last 2 weeks, how often have you been bothered by any of the following problems? 1. Little interest or pleasure in doing things: several days 2. Feeling down, depressed, or hopeless: several days 3. Trouble falling or staying asleep, or sleeping too much: several days 4. Feeling tired or having little energy: several days 5. Poor appetite or overeating: several days 6. Feeling bad about yourself - or that you are a failure or have let yourself or your family down: several days 7. Trouble concentrating on things, such as reading the newspaper or watching television: several days 8. Moving or speaking so slowly that other people could have noticed. Or the opposite - being so fidgety or restless that you have been moving around a lot more than usual: several days 9. Thoughts that you would be better off or of hurting yourself in some way: several days Total score: 9 Depression Screening Interpretation: Positive Depression Screening Follow-up: Existing condition and Declines treatment Depression Screening Done: Yes 15644 - PHQ-9 Billing: Yes Source: Developed by Drs. Reji Camarena, Lizeth Horton, Star Teresa and colleagues, with an educational reymundo from [employer]. Thrive Questionnaire Date Thrive assessed: 10/01/24 I am a: Patient What is your living situation today?: I have a steady place to live Within the past 12 months, did the food you bought not last and you didn't have the money to get more?: Never true Within the past 12 months, did you worry whether your food would run out before you got money to buy more?: Never true Do you have trouble paying for medicines?: No Do you have trouble getting transportation to medical appointments?: No Do you have trouble paying your heating and electricity bill?: No Do you have trouble taking care of your child, family member or friend?: No Do you have trouble with day-to-day activities such as bathing, preparing meals, shopping, managing finances, etc.?: No Are you currently unemployed and looking for a job?: No Are you interested in more education?: No Please select the resources that you would like help with: None Currently or been in a relationship where the following occur: No concerns reported THRIVE Score: 0 AUDIT C Alcohol Use Questionnaire (AUDIT-C) 2. How many drinks containing alcohol do you have on a typical day when you are drinking?: 1 or 2 3. How often do you have six or more drinks on one occasion?: Never Total Score: 0 BOLIVAR-7 AMB Questionnaire BOLIVAR-7 Date BOLIVAR - 7 assessed: 10/01/24 Source: Developed by Drs. Reji Camarena, Lizeth Horton, Star Teresa and colleagues, with an educational reymundo from [employer]. Review of Systems Const Denies chills, Denies fever(s) and Denies headache(s) Eyes Reports no additional complaints ENT Denies dizziness and Denies headache(s) Card Denies chest pain, Denies lightheadedness and Denies dyspnea Resp Denies dyspnea GI Denies nausea and Denies vomiting Reports no additional complaints Musc Reports no additional complaints and Denies abnormal gait Skin/Breast Reports system reviewed and no additional complaints, except as documented Neuro Denies abnormal gait, Denies dizziness and Denies headache(s) Psych Reports no additional complaints Physical exam (Primary Care) Vital Signs: Last Vital Signs Pulse 69 10/01/24 08:54 BP 118/64 10/01/24 08:54 Pulse Ox 98 10/01/24 08:54 Oxygen Delivery Method Room Air 10/01/24 08:54 BMI result Body Mass Index 32.2 Tobacco/Smoking Status: Tobacco use Status Tobacco use date assessed 06/27/24 10/01/24 08:58 Patient Tobacco Use Status Never used Tobacco 10/01/24 08:58 e-Cigarette/Vaping Use Never Used 10/01/24 08:58 PHQ-9: PHQ-9 Score PHQ-9: Total score 9 10/01/24 08:58 Depression Screening Interpretation: Positive Depression Screening Follow-up: Existing condition and Declines treatment Thrive Assessment: Date of Thrive Assessment Date Thrive assessed 10/01/24 10/01/24 08:58 Currently or been in a relationship where the following occur: No concerns reported Const General: cooperative, healthy appearing, comfortable and no acute distress Orientation/consciousness: patient oriented x3 HENMT Head: Yes normocephalic Ears: hearing grossly normal bilaterally General nose exam: Normal external nose present Eyes General: appearance normal, both eyes and all related structures Conjunctivae: conjunctivae normal Neck Neck: Yes full ROM and Yes no lymphadenopathy Resp Effort & Inspection: normal respiratory effort Auscultation: clear to auscultation bilaterally, no crackles, no rales, no rhonchi and no wheezes Cardio Rate: regular rate Rhythm: regular rhythm Skin General skin exam: no rashes or lesions noted Full body images: 2 1. small non-erythematous bump without overlying skin changes and no mass felt under the skin Neuro General: patient oriented x3 Gait exam (Neuro): Normal gait present Extrem General: Yes normal to inspection, Yes full ROM and No edema Psych Affect: normal affect Attitude: cooperative Insight: Good insight present (Psych) Judgement: Good judgement present (Psych) Coding Level of Care Code Est Pt Level 3 (86398) Diagnoses Insomnia G47.00 Obesity E66.9 Skin lesion L98.9 Additional Codes PHQ-9 - 43510 - PHQ-9 Billing: Yes ([id number]) Assessment & Plan Assessment & Plan (1) Insomnia: Code(s): G47.00 - Insomnia, unspecified Category: Medical Plan: Patient has tried hydroxyzine, trazodone and Ambien in the past without good benefit. Trazodone resulted in a grogginess in the morning which is why this medication was discontinued. He did not find Ambien or hydroxyzine effective. I did offer to increase the dose of hydroxyzine however patient would like to try a new medication altogether. I discussed possible options including but not limited to Remeron and Seroquel. Patient would like to try Seroquel at this time I discussed with patient possible side effects of this medication and advised him to follow up if he should develop any tremors, difficulty urinating or any other symptoms. Plan to trial Seroquel 25 mg as needed for insomnia and follow up in 2 months or sooner as needed. (2) Obesity: Code(s): E66.9 - Obesity, unspecified Category: Medical Plan: Healthy diet and regular exercise is encouraged. (3) Skin lesion: Code(s): L98.9 - Disorder of the skin and subcutaneous tissue, unspecified Category: Medical Plan: Patient has a small skin lesion on the back of the right calf without irregular borders and nonerythematous. I did offer dermatology referral today which was declined. Patient to continue monitoring it and reach out to the office if it is growing or changing. Plan The patient will start Seroquel at 25 mg for insomnia, with instructions to monitor for effectiveness and side effects such as grogginess or sexual dysfunction. If the initial dose is ineffective, the dosage may be increased to 50 mg after a couple of weeks. For the skin lesion on the right calf, the patient is advised to monitor for changes in size, redness, or itchiness, and to report any concerning developments. A dermatology referral is available if the lesion persists or worsens. This note was constructed using voice recognition software. While every effort has been made to ensure accuracy and die engraving supervisor, still areas may have been included sometimes these areas may affect the content or meeting of the given symptoms. Total time spent caring for the patient today was 30 minutes. This includes time spent before the visit reviewing the chart, time spent during the visit, and time spent after the visit and documentation. Patient was informed and verbally consented to the use of an ambient scribe for clinic note documentation during this visit. Medications: New 2 quetiapine 25 mg PO BEDTIME 30 tabs 1RF Discontinued 2 nystatin Discontinued Reason: Patient no longer taking 1 appl topical BID 30 grams 0RF hydroxyzine HCl Discontinued Reason: Patient no longer taking 25 mg PO BEDTIME 30 tabs 2RF
[2024-10-01 08:54] VITALS: BP 118/64; PULSE 69; O2SAT 98; BMI 32.2
== END 2024-10-01 09:18 | disposition home or self-care (01) ==
LOC: HO.HMCH 08:46
DX: G47.00 Insomnia, unspecified (principal); E66.9 Obesity, unspecified; Z68.32 Body mass index [BMI] 32.0-32.9, adult; L98.9 Disorder of the skin and subcutaneous tissue, unspecified

== ENCOUNTER → 2024-10-01 08:45 | Outpatient (BNVA) | payer OTHER, SELFPAY | DX: E66.9 Obesity, unspecified (principal); G47.00 Insomnia, unspecified; F32.A Depression, unspecified; Z68.32 Body mass index [BMI] 32.0-32.9, adult; J98.9 Respiratory disorder, unspecified | CPT/HCPCS: 96127; 99212 ==